=== PATIENT | male | born 1965 | race Caucasian/White ===

== ENCOUNTER 2017-05-17 14:24 | Emergency (ER) | END 2017-05-17 17:33 | disposition home or self-care (01) ==

== ENCOUNTER 2017-07-08 21:17 | Emergency (ER) | END 2017-07-09 00:34 | disposition home or self-care (01) ==

== ENCOUNTER 2017-08-30 01:31 | Inpatient (IN) | END 2017-09-08 18:25 | disposition home or self-care (01) | DRG 872 ==